=== PATIENT | female | born 1980 | race Caucasian/White ===

== ENCOUNTER 2017-03-27 16:07 | Emergency (ER) | payer BC, OTHER ==
[2017-03-27] MEDS ORDERED: Lidocaine 1% 20 ML MDV INJECT ONE (17:21)
[2017-03-27] MEDS ORDERED: Ibuprofen 800 MG Tab PO ONE (17:28)
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
[2017-03-27] MEDS ORDERED: Bacitracin Oint 1 GM U/D Packet TOP ONE (18:21)
[2017-03-27 18:33] VITALS: BP 119/79
== END 2017-03-27 18:17 | disposition home or self-care (01) ==
LOC: MW.ED 16:07
DX: Z02.89 Encounter for other administrative examinations (principal); L02.01 Cutaneous abscess of face; F17.210 Nicotine dependence, cigarettes, uncomplicated
CPT/HCPCS: 10060; 99282; A9270

== ENCOUNTER 2017-04-23 18:09 | Emergency (ER) | payer BC ==
[2017-04-23] MEDS ORDERED: Sodium Chloride 0.9% 2.5 ML Syringe FLUSH PRN (18:22)
[2017-04-23] MEDS ORDERED: Sodium Chloride 0.9% 10 ML Syringe FLUSH PRN (18:22)
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
[2017-04-23 19:21] LABS: CHLORIDE,CL 106 mmol/L (98-110); SODIUM,NA 139 mmol/L (136-146)
[2017-04-23 22:41] VITALS: BP 110/62
== END 2017-04-23 20:30 | disposition home or self-care (01) ==
LOC: MW.ED 18:09
DX: R55 Syncope and collapse (principal)
CPT/HCPCS: 36415; 80053; 80305; 81001; 81025; 85025; 99284; G0480; 99283

== ENCOUNTER 2017-07-10 21:36 | Observation (INO) | payer SELFPAY ==
[2017-07-10] MEDS ORDERED: Sodium Chloride 0.9% 10 ML Syringe FLUSH PRN (22:26)
[2017-07-10] MEDS ORDERED: Ketorolac 30 MG/ML SDV IVPUSH ONE (22:26)
[2017-07-10] MEDS ORDERED: Sodium Chloride 0.9% 2.5 ML Syringe FLUSH PRN (22:26)
[2017-07-10] MEDS ORDERED: Sodium Chloride 0.9% 1,000 ML IV ONE (22:26)
[2017-07-10] MEDS ORDERED: Ondansetron 4 MG/2 ML SDV IVPUSH ONE (22:26)
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
[2017-07-10] MEDS ORDERED: Iopamidol 755 Mg/ML 100 ML Bottle IVPUSH STA (23:19)
[2017-07-11 00:03] LABS: CHLORIDE,CL 98 mmol/L (98-110); SODIUM,NA 132 mmol/L (136-146)
[2017-07-11] MEDS ORDERED: Piperacillin/Tazobactam 3.375 GM in Sodium Chloride 0.9% 50 ML IV ONE (01:34)
[2017-07-11] MEDS ORDERED: Ondansetron 4 MG/2 ML SDV IVPUSH PRN (03:08)
[2017-07-11] MEDS ORDERED: Ibuprofen 400 MG Tab PO PRN (03:08)
[2017-07-11] MEDS: Sodium Chloride 0.9% 1,000 ML IV SCH ×2 (03:35→15:53)
[2017-07-11] MEDS: Acetaminophen 325 MG Tab PO PRN ×2 (06:46→20:27)
[2017-07-11] MEDS: Piperacillin/Tazobactam 3.375 GM in Sodium Chloride 0.9% 50 ML IV SCH ×3 (08:30→20:26)
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
[2017-07-11] MEDS: oxyCODONE 5 MG Tab PO PRN ×2 (10:11→19:45)
[2017-07-11] MEDS ORDERED: Potassium Chloride 40 MEQ in Sodium Chloride 0.9% 480 ML IV ONE (10:22)
--- NOTE | 2017-07-11 13:24 | US ---
EXAMINATION: Right upper quadrant ultrasound HISTORY: Dilated common bile duct COMPARISON: CT dated 07/10/2017 TECHNIQUE: Grayscale and color Doppler images obtained of the right upper quadrant. FINDINGS: The visualized pancreas appears normal. The liver is normal in contour and echogenicity wit hout a focal hepatic mass. Gallbladder wall thickness is normal. No pericholecystic fluid or shadowin g gallstones. The distal common bile duct is not well evaluated. However the common bile duct measure s up to 11 mm. The right kidney measures at least 13.4 cm [id number] without evidence of hydronephr osis. Right renal echotexture is heterogeneous. Sonographic Ugalde sign is positive. IMPRESSION: 1. Dilated common bile duct measuring up to 11 mm a positive sonographic Ugalde sign. No choledocholi thiasis or gallstones noted. 2. Right kidney is heterogeneous in echotexture, etiology uncertain.
[2017-07-11] MEDS: HYDROmorphone 1 MG/ML Syringe IVPUSH PRN ×2 (15:53→22:56)
--- NOTE | 2017-07-11 16:27 | CT ---
EXAM DATE: 07/11/17 PATIENT'S AGE: 37 Patient: CHRISTIE CASEY Facility: [place], [place] Site . Site : [id number] Study: CT Abdomen/Pelvis -07/11/2017 1:12:37 AM Ordering Physician: CINTHYA Final Report: INDICATION: Upper abdominal pain and back pain for 2-[address] ABDOMEN AND PELVIS WITH CONTRAST TECHNIQUE: Multidetector CT imaging was performed through the abdomen and pelvis following intravenous contrast administration using 50 mL Isovue 370. Coronal and sagittal reconstructions were generated. COMPARISON: None. FINDINGS: Lower chest: Lung bases are clear aside from minimal atelectasis. Liver: Within normal limits. Gallbladder and bile ducts: No gallbladder wall thickening or calcified gallstones. Prominent common bile duct measuring approximately 8 millimeters in diameter. Pancreas: Unremarkable. Spleen: Normal. Adrenals: No nodules or masses. Kidneys, ureters, and urinary bladder: Prominent kidneys both showing slightly heterogeneous enhancement diffusely and moderate perinephric stranding, concerning for bilateral pyelonephritis. No hydronephrosis. Incompletely distended urinary bladder. No bladder mass or definite wall thickening. Gastrointestinal tract: Normal caliber bowel without wall thickening. The appendix is normal. Vascular structures: Normal for age. Peritoneum: Minimal free fluid in the low pelvis. No free air or evidence of intra-abdominal abscess. Lymph nodes: No pathologically enlarged nodes identified. Reproductive organs: No pelvic masses. Bones: Normal for age. IMPRESSION: 1. Probable bilateral pyelonephritis. No hydronephrosis or renal abscess. 2. Apparent mild dilation of the common bile duct measuring approximately 8 millimeters in diameter. Consider ultrasound for further evaluation. OPHELIA JENSEN MD [employer] Dictated by Forrest Jensen MD @ 07/11/2017 1:22:58 AM Dictated by: Forrest Jensen MD @ 07/11/2017 01:25:00 (Electronic Signature) Report Signed by Proxy. FABBY
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
[2017-07-12] MEDS: Sodium Chloride 0.9% 1,000 ML IV SCH ×2 (01:48→14:20)
[2017-07-12] MEDS: Piperacillin/Tazobactam 3.375 GM in Sodium Chloride 0.9% 50 ML IV SCH ×4 (02:38→19:43)
[2017-07-12] MEDS: oxyCODONE 5 MG Tab PO PRN ×3 (04:36→19:11)
[2017-07-12] MEDS: HYDROmorphone 1 MG/ML Syringe IVPUSH PRN ×4 (08:08→22:08)
[2017-07-12] MEDS: Acetaminophen 325 MG Tab PO PRN (09:19)
--- NOTE | 2017-07-12 11:09 | PCM.PN ---
- Review of Systems Systems Review Comment:: reports fevers, abdominal pain controlled - Patient Data Vitals - Most Recent: Last Vital Signs Temp 39.3 C H 07/12/17 08:00 Pulse 107 H 07/12/17 08:00 Resp 16 07/12/17 08:00 BP 123/73 07/12/17 08:00 Pulse Ox 97 07/12/17 08:00 Weight - Most Recent: 70.7 kg I&O - Last 24 Hours: Intake & Output 07/11/17 07/12/17 07/12/17 22:59 06:59 14:59 Intake Total 1830 520 50 Output Total 900 950 Balance 930 -430 50 Lab Results Last 24 Hours: Laboratory Results - last 24 hr 07/12/17 07/12/17 Range/Units 07:55 07:55 WBC 13.12 H (4.0-11.0) K/uL RBC 3.80 L (4.30-5.90) M/uL Hgb 12.1 (12.0-16.0) g/dL Hct 34.7 L (36.0-46.0) % MCV 91.3 (80.0-98.0) fL MCH 31.8 (27.0-32.0) pg MCHC 34.9 (31.0-37.0) g/dL RDW Std Deviation 45.8 (28.0-62.0) fl RDW Coeff of [place] 14 (11.0-15.0) % Plt Count 119 L (150-400) K/uL MPV 11.60 (7.40-12.00) fL Neut % (Auto) 83.8 H (48.0-80.0) % Lymph % (Auto) 8.8 L (16.0-40.0) % [place] % (Auto) 5.9 (0.0-15.0) % Eos % (Auto) 1.4 (0.0-7.0) % Baso % (Auto) 0.1 (0.0-1.5) % Neut # (Auto) 11.0 H (1.4-5.7) K/uL Lymph # (Auto) 1.2 (0.6-2.4) K/uL [place] # (Auto) 0.8 (0.0-0.8) K/uL Eos # (Auto) 0.2 (0.0-0.7) K/uL Baso # (Auto) 0.0 (0.0-0.1) K/uL Nucleated RBC % 0.0 /100WBC Nucleated RBCs # 0 K/uL Sodium 137 (136-146) mmol/L Potassium 3.8 (3.5-5.1) mmol/L Chloride 105 (98-110) mmol/L Carbon Dioxide 21 (21-31) mmol/L BUN 18 (6.0-23.0) mg/dL Creatinine 1.2 (0.6-1.5) mg/dL Est Cr Clr Drug Dosing 62.42 mL/min Estimated GFR (MDRD) 50.6 ml/min Glucose 100 (60-110) mg/dL Calcium 7.7 L (8.8-10.8) mg/dL Total Bilirubin 1.1 (0.1-1.5) mg/dL AST 85 H (5-40) IU/L ALT 61 H (8-54) IU/L Alkaline Phosphatase 140 (40-150) Total Protein 5.1 L (6.0-8.0) g/dL Albumin 2.5 L (3.5-5.0) g/dL Globulin 2.6 (2.0-3.5) g/dL Albumin/Globulin Ratio 1.0 L (1.3-2.8) Arthur Results Last 24 Hours: Microbiology 07/11/17 02:09 Aerobic Blood Culture - Preliminary Blood - Venous NO GROWTH AFTER 1 DAY Anaerobic Blood Culture - Preliminary 07/11/17 02:20 Aerobic Blood Culture - Preliminary Blood - Venous - Lab Draw NO GROWTH AFTER 1 DAY Anaerobic Blood Culture - Final Med Orders - Current: Current Medications Acetaminophen (Tylenol) 650 mg PO Q4H PRN PRN Reason: Pain Last Admin: 07/12/17 09:19 Dose: 650 mg Hydromorphone HCl (Dilaudid) 1 mg IVPUSH Q3H PRN PRN Reason: pain 7 or above Last Admin: 07/12/17 08:08 Dose: 1 mg Piperacillin Sod/Tazobactam (Sod 3.375 gm/ Sodium Chloride) 50 mls @ 100 mls/ hr IV Q6H ELIAZAR Last Admin: 07/12/17 08:08 Dose: 100 mls/hr Sodium Chloride (Normal Saline) 1,000 mls @ 125 mls/hr IV ASDIRECTED ELIAZAR Last Admin: 07/12/17 01:48 Dose: 125 mls/hr Ibuprofen (Motrin) 400 mg PO Q6H PRN PRN Reason: Pain Ondansetron HCl (Zofran) 4 mg IVPUSH Q4H PRN PRN Reason: Nausea/Vomiting Last Admin: 07/11/17 08:30 Dose: 4 mg Oxycodone HCl (Oxycodone) 5 mg PO Q6H PRN PRN Reason: Pain Last Admin: 07/12/17 04:36 Dose: 5 mg Sodium Chloride (Saline Flush) 10 ml FLUSH ASDIRECTED PRN PRN Reason: Keep Vein Open Last Admin: 07/10/17 22:51 Dose: 10 ml Sodium Chloride (Saline Flush) 2.5 ml FLUSH ASDIRECTED PRN PRN Reason: Keep Vein Open Last Admin: 07/10/17 22:50 Dose: 2.5 ml Discontinued Medications Sodium Chloride (Normal Saline) 1,000 mls @ 999 mls/hr IV STAT ONE Stop: 07/10/17 23:26 Last Admin: 07/10/17 22:49 Dose: 999 mls/hr Piperacillin Sod/Tazobactam (Sod 3.375 gm/ Sodium Chloride) 50 mls @ 100 mls/ hr IV ONETIME ONE Stop: 07/11/17 02:03 Last Admin: 07/11/17 02:27 Dose: 100 mls/hr Potassium Chloride 40 meq/ (Sodium Chloride) 500 mls @ 125 mls/hr IV ONETIME ONE Stop: 07/11/17 14:21 Last Admin: 07/11/17 10:48 Dose: 125 mls/hr Iopamidol (Isovue-370 (76%)) 100 ml IVPUSH ONETIME STA Stop: 07/10/17 23:20 Last Admin: 07/10/17 23:20 Dose: 100 ml Ketorolac Tromethamine (Toradol) 30 mg IVPUSH ONETIME ONE Stop: 07/10/17 22:27 Last Admin: 07/10/17 22:49 Dose: 30 mg Ondansetron HCl (Zofran) 4 mg IVPUSH ONETIME ONE Stop: 07/10/17 22:27 Last Admin: 07/10/17 22:50 Dose: 4 mg - Exam General: Alert, Oriented Lungs: Clear to Auscultation, Normal Respiratory Effort Cardiovascular: Regular Rate, Regular Rhythm GI/Abdominal Exam: Soft, Non-Tender, No Distention, No Mass Extremities: Non-Tender, No Pedal Edema Skin: Warm, Dry, Intact - Problem List Review Problem List Initiated/Reviewed/Updated: Yes - My Orders Last 24 Hours: My Active Orders 07/12/17 11:02 CULTURE BLOOD [BC] Stat CULTURE BLOOD [BC] Stat Blood Culture x2 Reflex Set [OM.PC] Stat - Plan Plan:: 37 year old fm admitted for BL Pelonephritis and Dilated CBD on CT. BL Pyelonephritis: on Zosyn, IVF, Zofran PRN for vomiting. Dilated CBD: Dr. Zaldivar consulted and plans on MRCP today DVT Proph: scds,
--- NOTE | 2017-07-12 13:21 | PCM.SN ---
- Free Text/Narrative Note: Patient was admitted for pyelonephritis and was incidentally noted to have a mildly dilated CBD. US confirmed this finding. The patient's inital LFTs and bilirubin were normal. This morning her AST and ALT were mildly elevated. An abdominal MRI was done this morning. The preliminary report shows the following ; PRELIMINARY IMPRESSION: 1. Compromised by motion. 2. Third spacing of fluid with body wall edema, small pleural effusions, and small amount of ascites. 3. No evidence of cholelithiasis or choledocholithiasis. Again seen is mild dilatation of the CBD measuring 9-10 mm. 4. Abnormal appearance of the kidneys likely representing pyelonephritis as seen on the recent CT. I came to examine the patient and she was waiting outside for her to sampler pickup her belongings. I asked her how she was feeling and she complains of ongoing abdominal pain but did not appear in any acute distress. I did not perform a physical exam. I favor that her abdominal pain is secondary to her pyelonephritis and not due to any biliary etiology. Her urine culture grew E.coli. Her elevated AST and ALT are probably secondary to her systemic inflammatory response to this infection. Her bilirubin and Alk Phos remain within normal limits. I would expect that these labs will improve as she gets better. Can continue to watch her LFTs while she is an inpatient. Her MRCP was limited by motion as well as not being able to give her contrast due to her current renal function. There is a small likely-lucas that something was missed due to these limitations. If the Alk Phos and Bilirubin rise to above normal levels the next step in her workup would be an ERCP which would require her to be transferred. I will sign off as there is no evidence of cholecystitis or cholelithiasis that would require surgery. Please call if there are any questions or concerns regarding her.
--- NOTE | 2017-07-12 22:19 | PCM.SN ---
- Free Text/Narrative Note: Requested by nursing staff to obtain peripheral IV access. I did so with patient permission, RN assistance and ultrasound guidance in right antecubital space (4th attempt). I utilized sterile technique. I used 20 ga. and it inserted easily. I flushed 10cc of NS easily and dressed the site with sterile tegaderm. Patient tolerated procedure well.
[2017-07-13] MEDS: Acetaminophen 325 MG Tab PO PRN ×2 (00:26→13:41)
[2017-07-13] MEDS: oxyCODONE 5 MG Tab PO PRN ×2 (01:42→09:17)
[2017-07-13] MEDS: Sodium Chloride 0.9% 1,000 ML IV SCH (01:42)
[2017-07-13] MEDS: Piperacillin/Tazobactam 3.375 GM in Sodium Chloride 0.9% 50 ML IV SCH ×2 (01:42→10:33)
[2017-07-13 12:28] VITALS: BP 117/62
--- NOTE | 2017-07-13 12:53 | PCM.DCSUM1 ---
Discharge Summary - Discharge Data Discharge Date: 07/13/17 Discharge Disposition: Home, Self-Care 01 Condition: Good - Patient Summary/Data Consults: Consultations 07/11/17 11:25 Consult to Physician [CONS] Routine Hospital Course: 37 yo fm admitted for Ecoli bilateral pyelonephritis. She presented with right sided abdominal pain, nausea and fevers. CT scan of abdomen reported moderated bilateral perinephric stranding, no hydropnephrosis or abscess. It also reported CBD dilation of 8mm. WBC was 20,160 and her LFTs were normal. Her urine and blood cultures grew out E.coli. Dr. Zaldivar was consulted and recommended an MRCP showed mild dilation of DBD of 9-10mm but no evidence of cholelithiasis or choledocholithiasis. Patient was treated with IV zosyn with improvement of leukocytosis and resolution of fevers. Repeat blood cultures have been NGTD. Today she was refusing further blood draws and was requesting to go home. She was discharge on oral Levaquin to have follow up with [facility]. - Discharge Plan Prescriptions/Med Rec: Levofloxacin [Levaquin] 750 mg PO DAILY #12 tablet Home Medications: Home Meds Levofloxacin [Levaquin] 750 mg PO DAILY #12 tablet 07/13/17 [Rx] Patient Handouts: Pyelonephritis, Adult, [id number], Levofloxacin tablets Referrals: Anmol Gerard MD [Physician] - (Please set an appointment with [facility] after 1 week. ) - Patient Data Vitals - Most Recent: Last Vital Signs Temp 37.3 C 07/13/17 12:00 Pulse 92 07/13/17 12:00 Resp 16 07/13/17 12:00 BP 117/62 07/13/17 12:00 Pulse Ox 94 L 07/13/17 12:00 Weight - Most Recent: 70.7 kg I&O - Last 24 hours: Intake & Output 07/12/17 07/13/17 07/13/17 22:59 06:59 14:59 Intake Total 930 1765 Output Total 1200 2200 Balance -270 -435 JOANNE Results - Last 24 hrs: Microbiology 07/12/17 11:32 Aerobic Blood Culture - Preliminary Blood - Venous - Lab Draw NO GROWTH AFTER 1 DAY Anaerobic Blood Culture - Final 07/12/17 11:24 Aerobic Blood Culture - Preliminary Blood - Venous NO GROWTH AFTER 1 DAY Anaerobic Blood Culture - Final 07/11/17 02:09 Aerobic Blood Culture - Final Blood - Venous Anaerobic Blood Culture - Final Escherichia Coli 07/11/17 02:20 Aerobic Blood Culture - Preliminary Blood - Venous - Lab Draw NO GROWTH AFTER 2 DAYS Anaerobic Blood Culture - Final Med Orders - Current: Current Medications Acetaminophen (Tylenol) 650 mg PO Q4H PRN PRN Reason: Pain Last Admin: 07/13/17 00:26 Dose: 650 mg Hydromorphone HCl (Dilaudid) 1 mg IVPUSH Q3H PRN PRN Reason: pain 7 or above Last Admin: 07/12/17 22:08 Dose: 1 mg Piperacillin Sod/Tazobactam (Sod 3.375 gm/ Sodium Chloride) 50 mls @ 100 mls/ hr IV Q6H [facility] Last Admin: 07/13/17 10:33 Dose: Not Given Sodium Chloride (Normal Saline) 1,000 mls @ 125 mls/hr IV ASDIRECTED [facility] Last Admin: 07/13/17 01:42 Dose: 125 mls/hr Ibuprofen (Motrin) 400 mg PO Q6H PRN PRN Reason: Pain Ondansetron HCl (Zofran) 4 mg IVPUSH Q4H PRN PRN Reason: Nausea/Vomiting Last Admin: 07/11/17 08:30 Dose: 4 mg Oxycodone HCl (Oxycodone) 5 mg PO Q6H PRN PRN Reason: Pain Last Admin: 07/13/17 09:17 Dose: 5 mg Sodium Chloride (Saline Flush) 10 ml FLUSH ASDIRECTED PRN PRN Reason: Keep Vein Open Last Admin: 07/10/17 22:51 Dose: 10 ml Sodium Chloride (Saline Flush) 2.5 ml FLUSH ASDIRECTED PRN PRN Reason: Keep Vein Open Last Admin: 07/10/17 22:50 Dose: 2.5 ml Discontinued Medications Sodium Chloride (Normal Saline) 1,000 mls @ 999 mls/hr IV STAT ONE Stop: 07/10/17 23:26 Last Admin: 07/10/17 22:49 Dose: 999 mls/hr Piperacillin Sod/Tazobactam (Sod 3.375 gm/ Sodium Chloride) 50 mls @ 100 mls/ hr IV ONETIME ONE Stop: 07/11/17 02:03 Last Admin: 07/11/17 02:27 Dose: 100 mls/hr Potassium Chloride 40 meq/ (Sodium Chloride) 500 mls @ 125 mls/hr IV ONETIME ONE Stop: 07/11/17 14:21 Last Admin: 07/11/17 10:48 Dose: 125 mls/hr Iopamidol (Isovue-370 (76%)) 100 ml IVPUSH ONETIME STA Stop: 07/10/17 23:20 Last Admin: 07/10/17 23:20 Dose: 100 ml Ketorolac Tromethamine (Toradol) 30 mg IVPUSH ONETIME ONE Stop: 07/10/17 22:27 Last Admin: 07/10/17 22:49 Dose: 30 mg Ondansetron HCl (Zofran) 4 mg IVPUSH ONETIME ONE Stop: 07/10/17 22:27 Last Admin: 07/10/17 22:50 Dose: 4 mg *Q Meaningful Use (DIS) - VTE *Q VTE Criteria *Q: - Stroke *Q Stroke Criteria *Q: - AMI *Q AMI Criteria *Q:
--- NOTE | 2017-07-14 18:16 | MR ---
EXAM DATE: 07/11/17 PATIENT'S AGE: 37 Patient: CHRISTIE CASEY Facility: [place], [place] Site . Site : [id number] Study: MRI Abdomen [id number]/13/2018 11:33:25 AM Ordering Physician: Vonda Mejia Final Report: Indication: Dilated common bile duct. Comparison : Abdominal ultrasound dated [address] scan of the abdomen pelvis dated 10 July 2017. Technique : MRCP with heavily T2 weighted 2D and 3D MRCP images. Axial T1 in and out of phase, T2, and diffusion weighted images also performed. No gadolinium administered. Findings : No fatty infiltration of the liver. No focal abnormalities identified in the visualized portions of the liver, spleen, pancreas, and adrenal glands. Enlarged and mildly heterogeneous kidneys with perinephric edema. No hydronephrosis Trace amount of ascites. Mild dilation of the common bile duct measuring 1.0 cm. No intrahepatic bile duct dilation. No filling defects in the biliary system. Normal size of the main pancreatic duct. Impression : 1. Mild bile duct dilation. This could be due to a previously passed stone. No current choledocholithiasis. 2. Enlarged mildly heterogeneous kidneys may be due to pyelonephritis. Dictated by Ebenezer Lowery MD @ Jul 14 2017 1:08PM (Electronic Signature) Report Signed by Proxy. FABBY
== END 2017-07-13 13:47 | disposition home or self-care (01) ==
LOC: MW.ED 21:36 → MW.ICU 07-11 01:42 → MW.MS 07-11 13:44
PROVIDERS: ADMIT Internal Medicine; ATTEND Internal Medicine
DX: N12 Tubulo-interstitial nephritis, not specified as acute or chronic (principal); B96.20 Unspecified Escherichia coli [E. coli] as the cause of diseases classified elsewhere; K83.8 Other specified diseases of biliary tract; Z87.891 Personal history of nicotine dependence
CPT/HCPCS: 36415; 74177; 74181; 76705; 80048; 80053; 80305; 81001; 81025; 82150; 83605; 83690; 85025; 87040; 87086; 87088; 87186; 96361; 96374; 96375; 99285; A9270; J1170; J1885; J2405; J2543; J3480; J7040; J7050; Q9967; 87077; 96365; 96366; 96376; 99284; G0378

== ENCOUNTER 2023-10-18 18:02 | Emergency (ER) | payer SELFPAY ==
[2023-10-18] MEDS: Acetaminophen 500 MG Tab PO ONE (18:34)
[2023-10-18 19:20] LABS: CORONAVIRUS COVID-19 NAA NEGATIVE (NEGATIVE); INFLUENZA A NAA NEGATIVE (NEGATIVE); INFLUENZA B NAA NEGATIVE (NEGATIVE); RESPIRATORY SYNCYTIAL VIR NAA NEGATIVE (NEGATIVE)
[2023-10-18 19:43] LABS: APPEARANCE,URINE SLT CLOUDY; BILIRUBIN,URINE NEGATIVE (NEGATIVE); COLOR,URINE YELLOW; GLUCOSE,URINE NEGATIVE (NEGATIVE); KETONES,URINE NEGATIVE (NEGATIVE); LEUKOCYTE ESTERASE,URINE LARGE (NEGATIVE); NITRITE,URINE POSITIVE (NEGATIVE); OCCULT BLOOD,URINE SMALL (NEGATIVE); PH,URINE 6.5 (5.0-8.0); PROTEIN,URINE TRACE mg/dL (NEGATIVE); UROBILINOGEN,URINE 0.2 EU/dL (<2.0)
[2023-10-18 19:52] LABS: BACTERIA,URINE MANY (NEGATIVE); EPITHELIAL CELLS,URINE MODERATE (NONE-FEW); WBC,URINE TO NUMEROUS TO COUNT (0-5/HPF)
[2023-10-18] MEDS: cefTRIAXone 1 GM in Lidocaine 1% 2.1 ML IM STA (20:19)
[2023-10-18 20:36] VITALS: BP 112/69; PULSE 89
== END 2023-10-18 20:35 | disposition home or self-care (01) ==
LOC: MW.ED 18:02
DX: H66.93 Otitis media, unspecified, bilateral (principal); N30.01 Acute cystitis with hematuria; Z75.8 Other problems related to medical facilities and other health care; Z79.899 Other long term (current) drug therapy
CPT/HCPCS: 0241U; 81001; 81003; 81025; 87086; 96372; 99284; A9270; J0696; 87088; 87186; 99283; J3490

== ENCOUNTER 2024-07-30 21:24 | Observation (INO) | payer SELFPAY ==
[2024-07-30 22:22] LABS: APPEARANCE,URINE CLOUDY; COLOR,URINE YELLOW
[2024-07-30 22:23] LABS: BILIRUBIN,URINE NEGATIVE (NEGATIVE); GLUCOSE,URINE NEGATIVE (NEGATIVE); KETONES,URINE NEGATIVE (NEGATIVE); LEUKOCYTE ESTERASE,URINE MODERATE (NEGATIVE); NITRITE,URINE NEGATIVE (NEGATIVE); OCCULT BLOOD,URINE MODERATE (NEGATIVE); PROTEIN,URINE 30 mg/dL (NEGATIVE); UROBILINOGEN,URINE 0.2 EU/dL (<2.0)
[2024-07-30 22:30] LABS: BACTERIA,URINE 3+ (NEGATIVE); EPITHELIAL CELLS,URINE MANY (NONE-FEW); RBC,URINE 0-3 (0-2/HPF); WBC,URINE 20-30 (0-5/HPF)
[2024-07-30 23:28] LABS: BASOPHILS ABSOLUTE AUTO 0.05 K/uL (0.00-0.20); BASOPHILS PERCENT AUTO 0.4 % (0.0-1.0); EOSINOPHILS ABSOLUTE AUTO 0.31 K/uL (0.00-0.45); EOSINOPHILS PERCENT AUTO 2.5 % (0.0-6.0); HEMATOCRIT 39.5 % (37.0-47.0); HEMOGLOBIN 13.9 g/dL (12.0-16.0); IMMATURE GRAN ABSOLUTE AUTO 0.04 K/uL (0.00-0.05); IMMATURE GRAN PERCENT AUTO 0.3 % (0.0-0.4); LYMPHOCYTES ABSOLUTE AUTO 4.13 K/uL (1.00-4.80); LYMPHOCYTES PERCENT AUTO 33.4 % (24.0-44.0); MEAN CORPUSCULAR HEMOGLOBIN 32.9 pg (28.0-32.0); MEAN CORPUSCULAR HGB CONC 35.2 g/dL (32.0-36.0); MEAN CORPUSCULAR VOLUME 93.6 fL (83.0-99.0); MEAN PLATELET VOLUME 9.6 fL (9.4-12.3); MONOCYTES ABSOLUTE AUTO 0.76 K/uL (0.00-0.80); MONOCYTES PERCENT AUTO 6.1 % (0.0-8.0); NEUTROPHILS ABSOLUTE AUTO 7.09 K/uL (1.80-7.70); NEUTROPHILS PERCENT AUTO 57.3 % (41.0-71.0); PLATELET COUNT,PLT 261 K/uL (150-400); RED BLOOD CELL COUNT 4.22 M/uL (4.10-5.30); WHITE BLOOD CELL COUNT,WBC 12.38 K/uL (3.9-11.3)
[2024-07-30] MEDS ORDERED: Sodium Chloride 0.9% 2.5 ML Syringe FLUSH PRN (23:30)
[2024-07-30] MEDS ORDERED: Sodium Chloride 0.9% 20 ML SDV IV PRN (23:30)
[2024-07-30] MEDS ORDERED: Sodium Chloride 0.9% 10 ML Syringe FLUSH PRN (23:30)
[2024-07-30 23:52] LABS: ALBUMIN 3.2 g/dL (3.4-5.0); BILIRUBIN TOTAL 0.2 mg/dL (0.2-1.0); CALCIUM 8.4 mg/dL (8.5-10.1); CREATININE 0.9 mg/dL (0.6-1.0); EST CRCL DRUG DOSING (CG) 80.47 mL/min; POTASSIUM,K 4.6 mmol/L (3.5-5.1); PROTEIN TOTAL,TP 6.4 g/dL (6.4-8.2)
[2024-07-30] MEDS: Sodium Chloride 0.9% 1,000 ML IV ONE (23:59)
[2024-07-31] MEDS: cefTRIAXone 2 GM in Sodium Chloride 0.9% 50 ML IV ONE
[2024-07-31] MEDS: Ketorolac 30 MG/ML SDV IVPUSH ONE
[2024-07-31] MEDS: Morphine 2 MG/ML SYRINGE IVPUSH ONE ×2 (00:01→03:19)
[2024-07-31] MEDS: Ondansetron 4 MG/2 ML SDV IVPUSH ONE (00:01)
[2024-07-31] MEDS: Acetaminophen 500 MG Tab PO ONE (00:01)
[2024-07-31 02:46] LABS: AMPHETAMINES SCREEN, URINE PRESUMPTIVE POSITIVE (CUTOFF=500); BARBITURATE SCREEN,URINE NEGATIVE (CUTOFF=200); BENZODIAZEPINES SCREEN,URINE NEGATIVE (CUTOFF=150); BUPRENORPHINE SCREEN,URINE NEGATIVE (CUTOFF=10); METHADONE SCREEN, URINE NEGATIVE (CUTOFF=200); METHAMPHETAMINES SCREEN, URINE PRESUMPTIVE POSITIVE (CUTOFF=500); OXYCODONE SCREEN,URINE NEGATIVE (CUT0FF=100); PCP SCREEN,URINE NEGATIVE (CUTOFF=25); THC SCREEN,URINE 20 NG/ML PRESUMPTIVE POSITIVE (CUTOFF=50)
[2024-07-31] MEDS: Sodium Chloride 0.9% 1,000 ML IV SCH (05:21)
[2024-07-31] MEDS ORDERED: Acetaminophen 650 MG Supp RECTAL PRN (09:28)
[2024-07-31] MEDS ORDERED: Ondansetron 4 MG/2 ML SDV IVPUSH PRN (09:28)
[2024-07-31] MEDS ORDERED: Melatonin 3 MG Tab PO PRN (09:28)
[2024-07-31] MEDS: Acetaminophen 325 MG Tab PO PRN (09:33)
[2024-07-31 10:27] LABS: BASOPHILS ABSOLUTE AUTO 0.03 K/uL (0.00-0.20); BASOPHILS PERCENT AUTO 0.3 % (0.0-1.0); EOSINOPHILS ABSOLUTE AUTO 0.26 K/uL (0.00-0.45); HEMATOCRIT 38.5 % (37.0-47.0); HEMOGLOBIN 13.1 g/dL (12.0-16.0); IMMATURE GRAN ABSOLUTE AUTO 0.02 K/uL (0.00-0.05); IMMATURE GRAN PERCENT AUTO 0.2 % (0.0-0.4); LYMPHOCYTES ABSOLUTE AUTO 3.63 K/uL (1.00-4.80); MEAN CORPUSCULAR HEMOGLOBIN 32.2 pg (28.0-32.0); MEAN CORPUSCULAR VOLUME 94.6 fL (83.0-99.0); MEAN PLATELET VOLUME 9.8 fL (9.4-12.3); MONOCYTES ABSOLUTE AUTO 0.58 K/uL (0.00-0.80); MONOCYTES PERCENT AUTO 6.7 % (0.0-8.0); NEUTROPHILS ABSOLUTE AUTO 4.13 K/uL (1.80-7.70); NEUTROPHILS PERCENT AUTO 47.8 % (41.0-71.0); PLATELET COUNT,PLT 269 K/uL (150-400); RED BLOOD CELL COUNT 4.07 M/uL (4.10-5.30); WHITE BLOOD CELL COUNT,WBC 8.65 K/uL (3.9-11.3)
[2024-07-31 10:44] LABS: CALCIUM 7.9 mg/dL (8.5-10.1); CARBON DIOXIDE,CO2 25.8 mmol/L (21.0-32.0); EST CRCL DRUG DOSING (CG) 72.42 mL/min; MAGNESIUM 1.9 mg/dL (1.8-2.4); POTASSIUM,K 4.1 mmol/L (3.5-5.1)
[2024-07-31] MEDS: Polyethylene Glycol 3350 Powder 17 GM Packet PO SCH (12:04)
[2024-07-31] MEDS: oxyCODONE 5 MG Tab PO PRN (12:04)
[2024-07-31] MEDS: Sennosides/Docusate Sodium 50-8.6 MG Tab PO SCH (12:04)
[2024-07-31] MEDS: Pantoprazole 40 MG in Sodium Chloride 0.9% 10 ML IVPUSH SCH (12:05)
[2024-07-31 12:51] VITALS: BP 130/74; PULSE 85
[2024-07-31] MEDS ORDERED: cefTRIAXone 2 GM in Sodium Chloride 0.9% 50 ML IV SCH (22:00)
== END 2024-07-31 16:09 | disposition left against medical advice (07) ==
LOC: MW.ED 21:24 → MW.MS 07-31 03:06
PROVIDERS: ADMIT Family Medicine; ATTEND Family Medicine
DX: N12 Tubulo-interstitial nephritis, not specified as acute or chronic (principal); N39.0 Urinary tract infection, site not specified; R31.9 Hematuria, unspecified; K59.00 Constipation, unspecified; F17.210 Nicotine dependence, cigarettes, uncomplicated; Z79.899 Other long term (current) drug therapy
CPT/HCPCS: 36415; 74176; 80048; 80053; 80305; 81001; 83690; 83735; 85025; 87086; 96361; 96365; 96375; 96376; 99285; A9270; G0378; J0696; J1885; J2270; J2405; J2470; J3490; J7030

== ENCOUNTER 2024-08-04 00:45 | Emergency (ER) | payer BC ==
[2024-08-04] MEDS: Sodium Chloride 0.9% 1,000 ML IV ONE ×3 (01:14→03:35)
[2024-08-04 01:24] LABS: BASOPHILS ABSOLUTE AUTO 0.04 K/uL (0.00-0.20); BASOPHILS PERCENT AUTO 0.4 % (0.0-1.0); EOSINOPHILS ABSOLUTE AUTO 0.27 K/uL (0.00-0.45); HEMATOCRIT 40.8 % (37.0-47.0); HEMOGLOBIN 14.2 g/dL (12.0-16.0); IMMATURE GRAN ABSOLUTE AUTO 0.01 K/uL (0.00-0.05); IMMATURE GRAN PERCENT AUTO 0.1 % (0.0-0.4); LYMPHOCYTES PERCENT AUTO 34.4 % (24.0-44.0); MEAN CORPUSCULAR HEMOGLOBIN 32.7 pg (28.0-32.0); MEAN CORPUSCULAR HGB CONC 34.8 g/dL (32.0-36.0); MEAN PLATELET VOLUME 9.7 fL (9.4-12.3); MONOCYTES ABSOLUTE AUTO 0.61 K/uL (0.00-0.80); MONOCYTES PERCENT AUTO 6.8 % (0.0-8.0); NEUTROPHILS ABSOLUTE AUTO 4.97 K/uL (1.80-7.70); NEUTROPHILS PERCENT AUTO 55.3 % (41.0-71.0); PLATELET COUNT,PLT 291 K/uL (150-400); RED BLOOD CELL COUNT 4.34 M/uL (4.10-5.30)
[2024-08-04] MEDS: Ondansetron 4 MG/2 ML SDV IVPUSH ONE (01:30)
[2024-08-04] MEDS: Ketorolac 30 MG/ML SDV IVPUSH ONE (01:30)
[2024-08-04 01:46] LABS: ALBUMIN 3.5 g/dL (3.4-5.0); BILIRUBIN TOTAL 0.3 mg/dL (0.2-1.0); CALCIUM 8.9 mg/dL (8.5-10.1); CARBON DIOXIDE,CO2 31.8 mmol/L (21.0-32.0); CREATININE 1.2 mg/dL (0.6-1.0); EST CRCL DRUG DOSING (CG) 60.35 mL/min; PROTEIN TOTAL,TP 7.1 g/dL (6.4-8.2)
[2024-08-04 04:26] LABS: AMPHETAMINES SCREEN, URINE PRESUMPTIVE POSITIVE (CUTOFF=500); BARBITURATE SCREEN,URINE NEGATIVE (CUTOFF=200); BENZODIAZEPINES SCREEN,URINE NEGATIVE (CUTOFF=150); BUPRENORPHINE SCREEN,URINE NEGATIVE (CUTOFF=10); METHADONE SCREEN, URINE NEGATIVE (CUTOFF=200); METHAMPHETAMINES SCREEN, URINE PRESUMPTIVE POSITIVE (CUTOFF=500); OXYCODONE SCREEN,URINE NEGATIVE (CUT0FF=100); PCP SCREEN,URINE NEGATIVE (CUTOFF=25); THC SCREEN,URINE 20 NG/ML PRESUMPTIVE POSITIVE (CUTOFF=50)
[2024-08-04 04:38] LABS: APPEARANCE,URINE SLT CLOUDY; BILIRUBIN,URINE NEGATIVE; COLOR,URINE YELLOW; GLUCOSE,URINE NEGATIVE; KETONES,URINE NEGATIVE; NITRITE,URINE NEGATIVE (NEGATIVE); OCCULT BLOOD,URINE NEGATIVE; PH,URINE 6.5; PROTEIN,URINE TRACE; UROBILINOGEN,URINE 0.2 (<1.0)
[2024-08-04 04:39] LABS: BACTERIA,URINE RARE (NEGATIVE); RBC,URINE 0-1 (0-2/HPF); SQUAMOUS EPITHELIAL CELLS,UR FEW
[2024-08-04 04:41] LABS: LEUKOCYTE ESTERASE,URINE MODERATE (NEGATIVE)
[2024-08-04 05:23] VITALS: BP 139/72; PULSE 92
== END 2024-08-04 05:12 | disposition home or self-care (01) ==
LOC: MW.ED 00:45
DX: R30.0 Dysuria (principal); R00.0 Tachycardia, unspecified; R79.89 Other specified abnormal findings of blood chemistry; F15.10 Other stimulant abuse, uncomplicated; F11.20 Opioid dependence, uncomplicated; F12.90 Cannabis use, unspecified, uncomplicated; Z87.440 Personal history of urinary (tract) infections
CPT/HCPCS: 36415; 80053; 80305; 81001; 83605; 83690; 85025; 87086; 87428; 93005; 96361; 96374; 96375; 99284; J1885; J2405; J7030

== ENCOUNTER 2024-12-06 13:17 | Emergency (ER) | payer BC ==
[2024-12-06] MEDS: Ketorolac 30 MG/ML SDV IM ONE (14:15)
[2024-12-06 15:41] VITALS: BP 108/67; PULSE 74
== END 2024-12-06 15:39 | disposition home or self-care (01) ==
LOC: MW.ED 13:17
DX: M25.512 Pain in left shoulder (principal); M54.2 Cervicalgia; F17.200 Nicotine dependence, unspecified, uncomplicated; Z79.899 Other long term (current) drug therapy
CPT/HCPCS: 72125; 73030; 96372; 99284; J1885; 99282